=== PATIENT | female | born 1955 | race Caucasian/White ===

== ENCOUNTER 2019-09-10 13:56 | Inpatient (IN) | payer BC, SELFPAY ==
[2019-09-10 14:00] VITALS: BP 127/78; PULSE 56; RESP 16; TEMP 36.7; O2SAT 95
[2019-09-10 14:46] VITALS: BMI 25.0
[2019-09-10 17:57] VITALS: BMI 25.0
[2019-09-10 21:48] VITALS: RESP 18; O2SAT 96
[2019-09-10 22:00] VITALS: BP 137/75; PULSE 67; RESP 18; TEMP 36.9; O2SAT 96
[2019-09-10] MEDS: Carvedilol 12.5 MG Tablet PO (22:34)
[2019-09-10] MEDS: Atorvastatin Calcium 80 MG Tablet PO (22:35)
[2019-09-10] MEDS: Senna/Docusate Sodium 1 Tablet 2 TABLET PO (22:35)
[2019-09-11 01:33] VITALS: BMI 25.0
[2019-09-11] MEDS: Nystatin Powder 15gm Bottle 1 APPLIC TOPICAL ×2 (05:29→22:11)
[2019-09-11 05:51] LABS: Absolute Lymphocyte Count 1.22 X10^3/uL (0.83-4.51); Absolute Neutrophil Count 6.3 X10^3/uL (2.0-7.7); Basophil# 0.07 X10^3/uL; Basophil% 0.8 % (0-1); Eosinophil# 0.18 X10^3/uL; Eosinophils% 2.1 % (0-5); Hematocrit 47.3 % (37-47); Hemoglobin 15.3 g/dL (12.0-15.0); Lymphocyte # 1.22 X10^3/ul (4.0); Lymphocyte % 14.3 % (19-41); Mean Corp Hgb Conc 32.3 g/dL (32-36); Mean Corpuscular Hgb 29.5 pg (27.0-32.0); Mean Corpuscular Volume 91.3 fL (81-99); Mean Platelet Vol. 10.2 fl (6.2-12.0); Monocyte# 0.79 X10^3/uL; Monocyte% 9.3 % (0-10); NRBC Flagged by Analyzer 0 % (0-5); Neutrophil # 6.25 X10^3/uL (2.7-7.7); Neutrophil % 73.3 % (47-70); Platelet Count 218 K/mm3 (150-450); RBC Distribution Width SD 43.7 fl (35.1-43.9); Red Blood Count 5.18 M/mm3 (4.2-5.4); White Blood Count 8.5 K/mm3 (4.4-11.0)
[2019-09-11 06:18] LABS: ALB/GLOB Ratio 0.9 RATIO (0.9-2.4); AST(SGOT) 32 U/L (15-37); Alanine Aminotransfer ALT/SGPT 72 U/L (13-56); Albumin, Serum 3.4 g/dL (3.2-5.0); Alkaline Phosphatase 79 U/L (45-117); Anion Gap 5 (5-15); BUN 24 mg/dL (7-18); BUN/Creat Ratio 28.1 RATIO (10-20); Calcium,Total 9.2 mg/dL (8.5-10.1); Chloride 103 mmol/L (98-107); Creatinine, Serum 0.86 mg/dL (0.55-1.02); EST Glomerular Filtration Rate 71 mL/min (>60); Est Glom Filt Rate - Afr Amer 86 mL/min (>60); Estimated Creatinine Clearance 57.07 ml/min; Globulin 3.9 g/dL (2.2-4.2); Glucose 95 mg/dL (74-106); Magnesium 2.2 mg/dL (1.6-2.6); Potassium 3.8 mmol/L (3.5-5.1); Protein, Total 7.3 g/dL (6.4-8.2); Sodium Level 136 mmol/L (136-145)
[2019-09-11 07:15] VITALS: BP 130/77; PULSE 56; RESP 16; TEMP 36.8; O2SAT 95
[2019-09-11] MEDS: Carvedilol 12.5 MG Tablet PO ×2 (07:41→22:10)
[2019-09-11] MEDS: Aspirin E.C. 81 MG Tablet PO (07:41)
[2019-09-11] MEDS: hydroCHLOROthiazide 12.5mg 12.5 MG PO (07:41)
[2019-09-11] MEDS: Losartan Potassium 100 MG Tablet PO (07:42)
[2019-09-11] MEDS: Senna/Docusate Sodium 1 Tablet 2 TABLET PO ×2 (07:42→22:10)
[2019-09-11] MEDS: amLODIPine 10 MG Tablet PO (07:42)
--- NOTE | 2019-09-11 11:27 | HP.PCM_ITS ---
Problem List (1) Debility Status: Acute Comment: due to L MCA ischemic CVA with small 5 mm petechial hemorrhagic transformation (2) Ischemic cerebrovascular accident (CVA) Status: Acute Comment: 09/07/19 L MCA (3) NSTEMI (non-ST elevated myocardial infarction) Status: Acute Comment: 09/07/19 - troponin peaked at 0.3. she has segmental wall motion abnormalities on ECHo with a 45-50% EF. Cath showed no significant CAD. (4) Intracerebral hemorrhage Status: Acute Qualifiers: Intracerebral hemorrhage etiology: nontraumatic Cerebral hemorrhage location: cerebral hemisphere, subcortical portion Laterality: left Qualified Code(s): I61.0 - Nontraumatic intracerebral hemorrhage in hemisphere, subcortical Comment: small petechial hemorrhage in the L frontal area (5) Hypertension Status: Chronic (6) Depression Status: Acute Comment: son 3 weeks prior to her stroke (7) Aphasia Status: Acute (8) Venous insufficiency Status: Chronic (9) Venous stasis ulcer Status: Chronic Qualifiers: Venous stasis ulcer site: calf Laterality: right Comment: RLE - present since a dog bite a few months prior to admission to the rehab unit (10) Biatrial enlargement Status: Chronic Comment: Moderate to severe left atrial enlargement and moderate right atrial enlargement. (11) Mild aortic stenosis Status: Chronic Comment: The aortic valve is calcified. The valve gradient on left heart cath was unremarkable. (12) Dysphagia Status: Acute (13) LVH (left ventricular hypertrophy) Status: Acute Comment: has some impaired relaxation of the left ventricle (14) Mitral regurgitation Status: Chronic Qualifiers: Cardiac valve disease etiology: nonrheumatic Qualified Code(s): I34.0 - Nonrheumatic mitral (valve) insufficiency History of Present Illness Date of Admission: 09/10/19 Chief Complaint: Debility secondary to recent ischemic CVA with subsequent hemorrhagic transformation Yanet presented to a local hospital on 09/07/19 after her neighbors found her wandering in her yard confused and dysarthric. She was diagnosed with an acute CVA and had an elevated troponin. She was transferred to [facility] for further management. An echocardiogram done at the outside hospital showed a 45 to 50% ejection fraction with regional wall motion abnormalities. Cardiology and neurology were consulted upon arrival at [facility]. CT scan of the brain on arrival at [facility] on 09/07/2019 showed a left hyperdense MCA sign. There were minimal deep and periventricular white matter hypodensities consistent with small vessel ischemic disease. CTA showed the common carotids, internal carotids and left MCA to have no significant stenosis. The vertebrobasilar system was patent as well. The pulmonary artery appeared dilated. Lab at admission to [facility] was significant for leukocytosis and urinary tract infection. Troponin was mildly elevated and peaked at 0.3.. The EKG showed normal sinus rhythm with left ventricular hypertrophy and repolarization abnormalities in the lateral leads. There was no ST elevation. She had a left heart catheterization while at [facility] and this revealed no significant coronary artery disease. Her son 3 weeks prior to the stroke. He was HIV + and he of an infection. He had gastroparesis and he was chronically in a lot of pain. He was living with her and he was her only child. she is . Staff feels that the pt is depressed but, she denies. She had been diagnosed with HTN in the past by her PCP but, she decided not to take medication. I reviewed all the documentation from [facility] including labs, radiology, heart cath, ECHO and all the therapy notes Past Medical History Past Medical History (Chronic Problems): Chronic Problems (Last Reviewed 09/14/19 @ 12:[address] Mariana Mcnulty DO) Hypertension (Chronic) Venous insufficiency (Chronic) Venous stasis ulcer (Chronic) RLE - present since a dog bite a few months prior to admission to the rehab unit Biatrial enlargement (Chronic) Moderate to severe left atrial enlargement and moderate right atrial enlargement. Mild aortic stenosis (Chronic) The aortic valve is calcified. The valve gradient on left heart cath was unremarkable. Mitral regurgitation (Chronic) Medical History: Medical History (Last Reviewed 09/14/19 @ 12:[address] 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 She has a good friend Vicente who is helping her and is a good advocate for her Smoking Status: Never smoker Tobacco Use: Non-smoker Alcohol: None Drugs: None - *Family History Maternal History Items: Cancer - mother had breast CA, Stroke - strokes in grandparents Offspring History Items: - - son Chester had HIV and of an infection in August of 2019 Review of Systems Constitutional: Reports: Anorexia - at times....jamar with fluids. Denies: Chills, Fever, Weight Change Eyes: Denies: Blurred vision, Double vision, Vision Change HEENT: Reports: Difficulty Swallowing. Denies: Difficulty Hearing, Head Aches, Post Nasal Drip, Sinus Congestion, Sinus Drainage, Visual Changes Cardiovascular: Denies: Chest Pain, Edema, Palpitations, Syncope Respiratory: Denies: Cough, Pleuritic Pain, Shortness of breath at rest, Shortness of breath upon exertion, Sputum production, Wheezing Gastrointestinal: Denies: Abdominal Pain, Constipation, Diarrhea, Nausea, Vomiting Genitourinary: Denies: Dysuria, Incontinence Gynecological: Denies: Breast symptoms - she has not had a MMG since 2017, Vaginal bleeding, Vaginal discharge, Vaginal itching Musculoskeletal: Denies: Joint Pain, Joint Tenderness, Neck Pain Skin: Reports: Rash - she has a red maculopapular pruritic rash on the stomach, Back and UE's.. Denies: Jaundice, Wounds Neurological: Reports: Change in Speech - she is having trouble word finding and also is having memory problems and trouble sequencing, Confusion, Difficulty swallowing. Denies: Focal weakness, Headaches, Numbness, Tingling, Tremor, Seizures Psychiatric: Denies: Anxiety, Depression, Homicidal Ideations, Suicidal Ideations Endocrine: Denies: Change in Body Habitus Hematologic/ Lymphatic: Denies: Easy Bruising, Easy Bleeding, Hx of blood clot VTE Information - Inpt Only VTE Present on Admission: No VTE Mechan Device Prophylaxis: Knee High REI Hose VTE Pharm Prophylaxis ordered?: Yes Patient Problems: Active and Suspected Problems (Last Reviewed 09/14/19 @ 12:[address] Mariana Mcnulty, DO) Debility (Acute) due to L MCA ischemic CVA with small 5 mm petechial hemorrhagic transformation Ischemic cerebrovascular accident (CVA) (Acute) 09/07/19 L MCA NSTEMI (non-ST elevated myocardial infarction) (Acute) 09/07/19 - troponin peaked at 0.3. she has segmental wall motion abnormalities on ECHo with a 45-50% EF. Cath showed no significant CAD. Intracerebral hemorrhage (Acute) small petechial hemorrhage in the L frontal area Depression (Acute) son 3 weeks prior to her stroke Aphasia (Acute) primarily expressive Dysphagia (Acute) LVH (left ventricular hypertrophy) (Acute) has some impaired relaxation of the left ventricle - Physical Exam Vitals/I&O's: Vital Signs Temp Pulse Resp BP Pulse Ox 98.2 F 56 L 16 130/77 H 95 09/11/19 07:15 09/11/19 07:15 09/11/19 07:15 09/11/19 07:15 09/11/19 07:15 Oxygen Delivery Method Room Air Weight: 152 lb 5.431 oz Body Mass Index (BMI) 25.0 Intake and Output for Last 24 Hours 09/09/19 09/10/19 09/11/19 23:59 23:59 23:59 Intake Total 240 / 240 180 / 180 Balance 240 / 240 180 / 180 General: Alert, Oriented x3, Cooperative, - - She is tearful when talking about her son and when talking about depression and fears about the stroke and possiblity for another. She tells me that she now knows she needs to control BP and lipids if she is going to avoid additional strokes going forward. She does not want to be dependent and likes living alone. HEENT: Atraumatic, PERRLA, EOMI, Normocephalic, - - mild right facial droop Oral: No Gingival or Mucosal Lesions/ Ulcerations, Dry Mucosa Neck: Supple, No JVD, Trachea Midline, Thyroid Normal Size and Texture, Carotid Bruits, Bilateral - VS radiation of MM at he second RICS Lungs: Clear to auscultation, No rhonchi, No wheeze, No rales, Diminished - in the bases Cardiovascular: Regular rate, Regular Rhythm, Normal S1, Normal S2, Murmur - She has a systolic ejection MM a the second RICS with radiation to the LVOT, the LLSB and the apex.....mild at the apex. There is also a soft systolic MM in the left axilla due to MR Laboratory Results 09/11/19 05:35: WBC 8.5, RBC 5.18, Hgb 15.3 H, Hct 47.3 H, MCV 91.3, MCH 29.5, MCHC 32.3, RDW Std Deviation 43.7, RDW Coeff of [place] 13.0, Plt Count 218, MPV 10.2, Immature Gran % (Auto) 0.200, Neut % (Auto) 73.3 H, Lymph % (Auto) 14.3 L, [place] % (Auto) 9.3, Eos % (Auto) 2.1, Baso % (Auto) 0.8, Absolute Neuts (auto) 6.3, Absolute Lymphs (auto) 1.22, Nucleated RBC % 0 09/11/19 05:35: Sodium 136, Potassium 3.8, Chloride 103, Carbon Dioxide 28.0, Anion Gap 5, BUN 24 H, Creatinine 0.86, Estim Creat Clear Calc 57.07, Est GFR (MDRD) Af Amer 86, Est GFR (MDRD) Non-Af 71, BUN/Creatinine Ratio 28.1 H, Glucose 95, Calcium 9.2, Phosphorus 4.0, Magnesium 2.2, Total Bilirubin 0.80, AST 32, ALT 72 H, Alkaline Phosphatase 79, Total Protein 7.3, Albumin 3.4, Globulin 3.9, Albumin/Globulin Ratio 0.9 Current Medications Acetaminophen (Tylenol) 650 mg PO Q6H PRN PRN PRN Reason: Pain Score 1-10/10 Amlodipine Besylate (Norvasc) 10 mg PO DAILY [facility] Last Admin: 09/11/19 07:42 Dose: 10 mg Documented by: [facility] Admin: 09/11/19 07:41 Dose: 81 mg Documented by: Atorvastatin Calcium (Lipitor) 80 mg PO QHS [facility] Last Admin: 09/10/19 22:35 Dose: 80 mg Documented by: Bisacodyl (Dulcolax) 10 mg RECTAL .PRN X 1 PRN PRN Reason: Constipation Carvedilol (Coreg) 12.5 mg PO BID [facility] Last Admin: 09/11/19 07:41 Dose: 12.5 mg Documented by: Hydrochlorothiazide () 12.5 mg PO DAILY [facility] Last Admin: 09/11/19 07:41 Dose: 12.5 mg Documented by: Losartan Potassium (Cozaar) 100 mg PO DAILY [facility] Last Admin: 09/11/19 07:42 Dose: 100 mg Documented by: Magnesium Hydroxide (Milk Of Magnesia) 30 ml PO .PRN X 1 PRN PRN Reason: Constipation Multi-Ingredient Cream (Eucerin) 1 applic TOPICAL BID PRN PRN; Protocol PRN Reason: DRY SKIN Nutritional Formula (Lactose Free) (Ensure Enlive) 120 ml PO 4X/DAY [facility] Last Admin: 09/11/19 08:41 Dose: 120 ml Documented by: Nystatin (Mycostatin Powder) 1 applic TOPICAL BID@0600,2200 [facility]; Protocol Last Admin: 09/11/19 05:29 Dose: 1 applicatio Documented by: Senna/Docusate Sodium (Senokot-S, Paty-Colace) 2 tablet PO BID [facility] Last Admin: 09/11/19 07:42 Dose: 2 tablet Documented by: Assessment/Plan All Active Problems (Last Reviewed 09/14/19 @ 12:[address] Mariana Mcnulty, ) Debility (Acute) Ischemic cerebrovascular accident (CVA) (Acute) NSTEMI (non-ST elevated myocardial infarction) (Acute) Intracerebral hemorrhage (Acute) Depression (Acute) Aphasia (Acute) Dysphagia (Acute) LVH (left ventricular hypertrophy) (Acute) Impressions 1. Debility due to recent L posterior frontal lobe ischemic CVA with a 5 mm area of petechial hemorrhage due to occlusion of the M2 branch of the L MCA more likely than not due to untreated HTN 2. Depression due to the passing of her son recently and to CVA and NSTEMI 3. dehydration due to poor intake and HCTZ 4. allergic dermatitis - suspect due to antibiotic she was on at [facility] - either Clindamycin or Rocephin.......she was on Rocephin for UTI, why Clinda? did she have aspiration PNA? 5. FH of breast CA in her mother. Yanet has not had a MMG in 3 years. She has already had a VICKIE/BSO in the past for DUB 6. HLD 7. Biatrial enlargement with moderate to severe left atrial enlargement and moderate right atrial enlargement. This raises the possibility of paroxysmal atrial fibrillation as the etiology of recent stroke? 8. Concentric left ventricular hypertrophy, impaired relaxation of the heart in diastole. No PFO. PLAN PT for gait stability OT for ADL's ST for evaluation for swallowing and expressive aphasia. 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 Patient is asymptomatic and has no history of peptic ulcer disease. DVT prophylaxis with Lovenox 40 mg subcu daily. The bleed was only 5 mm and this is not a contraindication for DVT prophylaxis. Follow up with PCP, cardiology and neurology following DC from [facility] AM lab including CMP, CBC, Mag and Phos Will prescribe a 30 day event monitor at DC Encouraged to increase fluid intake......if she is unable to do this will need to DC the HCTZ and start an IV Treat for depression consult to supply her with resources to get therapy post DC. Inpatient E&M: 81228 Init Hosp L3
--- NOTE | 2019-09-11 12:22 | CASEMGMT ---
Social Work Note SW met with pt to complete psychosocial assessment. PT informed SW that her son on July 24, 2019. Pt tearful when discussing of son. Pt son lived with pt and was pt only child. Emotional support provided to pt and discussed with pt appropriate grieving reactions. SW offered Psychology Professor services and pt states not at this time but possibly down the road. Referral made to Psychology Professor Ray for later next week. SW will continue to visit pt to offer support. CARLO Weller
[2019-09-11 12:51] VITALS: O2SAT 95
[2019-09-11 13:54] VITALS: BMI 25.0
[2019-09-11 14:22] LABS: Probe Check PASS; Specimen Processing Control PASS
[2019-09-11] MEDS: DiphenhydrAMINE 25 MG Capsule PO (18:47)
[2019-09-11 19:45] VITALS: BP 137/81; PULSE 64; RESP 16; TEMP 36.6; O2SAT 95
--- NOTE | 2019-09-11 20:29 | REHABEVAL_ITS ---
Admission Information Primary Diagnosis:: debility due to ischemic L MCA CVA with small left frontal petechial hemorrhage with aphasia and dysphagia Status Changes from Prescreening?: No changes Identified Actual Problem List:: Cognitve Impr/Memory Loss, Depression Potential Problem List:: DVT, Bleeding, Infection, UTI, Aspiration, Falls, Skin Integrity, Depression Risk of Complications DVT: LMWH, REI Hose Bleeding: Monitor Lab Values, Nursing to Teach Precautions for anti-coagulation therapy., Wound, if applicable, to be assessed every shift., Stroke patients assessed for lethargy or change in status. Infection: Clinical Staff to Monitor for S/S of infection:, S/S of infection include fever, redness, warmth, etc. Urinary Tract Infection: Monitor for frequency, burning, discomfort, or incontinence., Nursing will obtain urine sample for urinalysis and C&S when ordered. Aspiration: Clinical staff will monitor for coughing, drooling, congestion., Speech will evaluate swallowing and dsyphasia., Nursing will monitor patient swallowing during meals. Falls: Patient will be evaluated for Fall Precautions, Patient will be placed on Fall Precautions as indicated per protocol. Skin Breakdown: Nursing will assess skin daily using assessment tool., Nursing will place on Skin Breakdown Precautions as indicated. Pain: Clinical staff will assess patient's pain level per protocol., Medications will be given, if needed, and the pain level reassessed., Other methods: Massage, distraction, decrease stimulus, etc. used PRN. Plan of Care Patient requires physician specializing in physical medicine and rehab oversight to provide close medical supervision of rehab issues including: Pain Management, Sleep Problems, Bowel and Bladder, Medical and co-morbidity Management, DVT prophylaxis, Rehabilitation Leadership, Coordination of treatment team Patient needs Physical Therapy: For a minimum of 1 hour, At least 5 out of 7 days Patient needs Physical Therapy to improve:: Mobility, Mobility, Mobility, Strengthening, Transfers, Stretching, ROM, Endurance, Stairs, Gait, Balance Patient needs Occupational Therapy: For a minimum of 1 hour, At least 5 out of 7 days Patient needs Occupational Therapy to improve ADL's incl.: Eating, Grooming, Bathing, Dressing, Toileting, Toilet transfers, Community Reintegration, Higher functioning activities, Household tasks, Adaptive Equipment, Splinting, Other activities as determined Patient requires speech therapy: For a minimum of 1 hour, At least 5 out of 7 days Patient requires speech therapy for: Swallowing, Cognition, Language Skills, Compensatory Strategies Patient requires 24/ Rehabilitation Nursing for: Pain Issues, Identifying and preventing risk factors, Monitoring and reporting current medical conditions, Assisting with ambulation, transfer, and all ADL's, Teaching patients about disease process and medications, Family teaching, Providing safe environment, Bowel and Bladder Issues, Skin integrity, Medication Management Patient needs High School Admissions Representative/ Case Management for: Discharge Planning, Arranging Home Equipment or Services, Family Interventions Patient needs Dietary and Nutrition Services for: Adequate Nutrition, Nut ritional Supplements, Nutritional Education Goals Patient will remain: free from falls, or injury at time of discharge. Patient will perform bed mobility at: MOD I level of assist. Patient will complete transfers from bed to chair at: MOD I level of assist. Patient will ambulate: 100 feet, with MOD I assist, with LRD Patient will complete upper body dressing at: MOD I level of assist. Patient will complete lower body dressing at: MOD I level of assist. Patient will complete toileting at: MOD I level of assist. Patient will perform bathing at: MOD I level of assist. Patient will complete grooming at: MOD I level of assist. Patient will complete home management skills at: MOD I level of assist. Patient will achieve: 12 stairs, at MOD I assist Patient will have pain level of: of 3 or less Patient's skin will: remain intact, free from infection. Patient will receive: adequate nutrition. Discharge Planning Pt Prognosis for Sig. Practical Improv. w/in Reasonable Time: Good Estimated Length of stay (days): 14 Anticipated D/C Destination: Home with Outpt Therapy Was Preadmission Assessment Accurate?: Yes
[2019-09-11] MEDS: Atorvastatin Calcium 80 MG Tablet PO (22:10)
[2019-09-11 23:16] VITALS: BMI 25.0
[2019-09-12] MEDS: DiphenhydrAMINE 25 MG Capsule PO ×3 (03:46→21:09)
[2019-09-12] MEDS: Nystatin Powder 15gm Bottle 1 APPLIC TOPICAL ×2 (06:21→21:13)
[2019-09-12 07:14] VITALS: BP 134/79; PULSE 57; RESP 16; TEMP 36.6; O2SAT 96
[2019-09-12 07:20] VITALS: O2SAT 95
[2019-09-12] MEDS: Carvedilol 12.5 MG Tablet PO ×2 (07:24→21:10)
[2019-09-12] MEDS: amLODIPine 10 MG Tablet PO (07:24)
[2019-09-12] MEDS: hydroCHLOROthiazide 12.5mg 12.5 MG PO (07:24)
[2019-09-12] MEDS: Losartan Potassium 100 MG Tablet PO (07:24)
[2019-09-12] MEDS: Aspirin E.C. 81 MG Tablet PO (07:24)
[2019-09-12 11:05] VITALS: BMI 25.0
[2019-09-12] MEDS: MethylPREDNISolone DosePak 4 MG BOX PO ×3 (12:12→21:10)
[2019-09-12 19:49] VITALS: BP 133/78; PULSE 64; RESP 18; TEMP 36.2; O2SAT 94
[2019-09-12] MEDS: Atorvastatin Calcium 80 MG Tablet PO (21:10)
[2019-09-13] MEDS: Nystatin Powder 15gm Bottle 1 APPLIC TOPICAL ×2 (05:06→21:15)
[2019-09-13] MEDS: Aspirin E.C. 81 MG Tablet PO (08:42)
[2019-09-13] MEDS: Losartan Potassium 100 MG Tablet PO (08:42)
[2019-09-13] MEDS: Carvedilol 12.5 MG Tablet PO ×2 (08:42→21:09)
[2019-09-13] MEDS: amLODIPine 10 MG Tablet PO (08:43)
[2019-09-13] MEDS: hydroCHLOROthiazide 12.5mg 12.5 MG PO (08:43)
[2019-09-13] MEDS: MethylPREDNISolone DosePak 4 MG BOX PO ×4 (08:44→21:09)
[2019-09-13 09:10] VITALS: BP 131/80; PULSE 62; RESP 18; TEMP 36.9; O2SAT 97
[2019-09-13 13:42] VITALS: BMI 25.0
[2019-09-13] MEDS: Atorvastatin Calcium 80 MG Tablet PO (21:09)
[2019-09-13 21:40] VITALS: BP 143/88; PULSE 64; RESP 18; TEMP 36.5; O2SAT 98
[2019-09-14 02:06] VITALS: BMI 25.0
[2019-09-14] MEDS: Nystatin Powder 15gm Bottle 1 APPLIC TOPICAL ×2 (05:46→21:56)
[2019-09-14 06:21] LABS: Anion Gap 6 (5-15); BUN 44 mg/dL (7-18); BUN/Creat Ratio 39.6 RATIO (10-20); Calcium,Total 9.9 mg/dL (8.5-10.1); Chloride 102 mmol/L (98-107); Creatinine, Serum 1.11 mg/dL (0.55-1.02); EST Glomerular Filtration Rate 52 mL/min (>60); Est Glom Filt Rate - Afr Amer 64 mL/min (>60); Estimated Creatinine Clearance 46.07 ml/min; Glucose 122 mg/dL (74-106); Potassium 4.3 mmol/L (3.5-5.1); Sodium Level 136 mmol/L (136-145)
[2019-09-14 07:31] VITALS: BP 132/80; PULSE 67; RESP 18; TEMP 36.4; O2SAT 98
[2019-09-14] MEDS: MethylPREDNISolone DosePak 4 MG BOX PO ×4 (08:10→21:56)
[2019-09-14] MEDS: Losartan Potassium 100 MG Tablet PO (08:11)
[2019-09-14] MEDS: Aspirin E.C. 81 MG Tablet PO (08:11)
[2019-09-14] MEDS: amLODIPine 10 MG Tablet PO (08:11)
[2019-09-14] MEDS: hydroCHLOROthiazide 12.5mg 12.5 MG PO (08:11)
[2019-09-14] MEDS: Carvedilol 12.5 MG Tablet PO ×2 (08:11→21:55)
[2019-09-14 11:08] VITALS: BMI 25.0
--- NOTE | 2019-09-14 11:53 | CASEMGMT ---
Team meeting held in pt room with pt and friend Vicente present. Pt is participating in three hours of therapy daily receiving PT/OT/ST. Pt is able to ambulate and complete 14 stairs at SBA. Pt is also SBA for ADLs and will start working with OT on higher level functioning items. Speech is seeing pt for swallowing, speech and cognition. Pt having difficulty with word finding and complex cognitive multistep directions. SW discussed with pt and Vicente that insurance has authorized initial stay with update tomorrow but continued stay is not guaranteed. Pt plans to return home upon discharge however pt does live alone and pt and Vicente expressing concerns of being discharged before pt is safe to live alone. Pt is unable to use phone due to impairment from stroke and pt and Vicente fearful of an emergency situation in which pt cannot express self clearly under stressful situations. Vicente is working on making pt home accessible but it is not ready at this time. Pt would benefit from continued therapy to improve expressive aphasia and higher level cognitive functioning prior to discharging home. Will continue with treatment plan at this time and reteam next week. CARLO Weller
--- NOTE | 2019-09-14 12:27 | CASEMGMT ---
Social Work SW spoke with Pal in Behavioral Health regarding assessment for pt to followup with counseling at time off discharge. At this time questionable if pt would tolerate [facility]'s IOP program due to cognitive deficits as pt may be overwhelmed with groups and have difficulty focusing. SW will followup with Behavioral health closer to time of discharge after pt has had continued speech therapy and will assess for appropriateness. CARLO Weller
--- NOTE | 2019-09-14 13:55 | PCM.PN.BLA ---
Progress Note Patient was seen on team rounds today. Her friend Vicente was present for rounds. Vicente is trying to get the residence cleaned up and safe for the patient to return to. Apparently Rose has been overwhelmed and not keeping up with the housekeeping. Afebrile VSS Maintaining appropriate oxygen saturation on RA Oral intake is starting to improve..... She took 1920 cc on 09/13/2019 and so far today has had 720. Discussed with nursing - no problems that need addressed Reviewed the PT/OT/ST notes. Deficit is primarily expressive aphasia and cognitive dysfunction. She has a very mild left facial droop but no facial numbness or visual field cuts. Medication list reviewed. She has no complaints at this time other than memory difficulties. She has been trying to comply with increasing fluids. She denies chest pain, shortness of breath, palpitations, lightheadedness. Alert, cooperative Lungs-clear to auscultation with excellent air exchange Heart-regular rate and rhythm. Systolic murmur heard at the second right intercostal space with radiation to the left ventricular outflow tract, the left lower sternal border and the apex. She also has a systolic murmur in the left axilla due to mitral regurgitation. abd - soft and NT no edema no rashes or skin breakdown no calf tenderness Impressions 1. Post stroke debility 2. Depression 3. Dehydration 4. Allergic dermatitis more likely than not secondary to either clindamycin or Rocephin-patient finished these antibiotics prior to coming to [facility] 5. Biatrial enlargement with moderate to severe left atrial enlargement and moderate right atrial enlargement. I am concerned she may be having PAF. 6. LVH due to untreated HTN 7. HTN Continue to encourage increased fluid intake continue therapy 30 day event monitor at [place] Inpatient E&M: [id number] Subs Hosp L2
--- NOTE | 2019-09-14 16:34 | CASEMGMT ---
Social Work Insurance update is not due tomorrow. Pt approved for 14 days with NRD 09/23. Pt and Friend Vicente notified. CARLO Weller
[2019-09-14] MEDS: Senna/Docusate Sodium 1 Tablet 2 TABLET PO (21:55)
[2019-09-14] MEDS: Atorvastatin Calcium 80 MG Tablet PO (21:55)
[2019-09-14] MEDS: Mirtazapine 15 MG Tablet 7.5 MG PO (21:56)
[2019-09-14 22:00] VITALS: BP 152/85; PULSE 56; RESP 16; TEMP 37.1; O2SAT 96; BMI 25.0
[2019-09-15] MEDS: Enoxaparin 40 MG/0.4 ML Syringe SC (05:37)
[2019-09-15] MEDS: Nystatin Powder 15gm Bottle 1 APPLIC TOPICAL ×2 (05:38→21:18)
[2019-09-15] MEDS: MethylPREDNISolone DosePak 4 MG BOX PO ×3 (07:48→21:18)
[2019-09-15] MEDS: amLODIPine 10 MG Tablet PO (07:49)
[2019-09-15] MEDS: Aspirin E.C. 81 MG Tablet PO (07:49)
[2019-09-15] MEDS: Carvedilol 12.5 MG Tablet PO ×2 (07:49→21:18)
[2019-09-15] MEDS: Losartan Potassium 100 MG Tablet PO (07:49)
[2019-09-15] MEDS: Senna/Docusate Sodium 1 Tablet 2 TABLET PO (07:49)
[2019-09-15] MEDS: hydroCHLOROthiazide 12.5mg 12.5 MG PO (07:49)
[2019-09-15 07:52] VITALS: BP 152/88; PULSE 60; RESP 16; TEMP 36.6; O2SAT 96
[2019-09-15 11:05] VITALS: BMI 25.0
--- NOTE | 2019-09-15 14:38 | PCM.PN.BLA ---
Progress Note Doing well today. She has no complaints Fluid intake has increased since she was threatened with an IV Blood pressure is well controlled Maintaining appropriate oxygen saturation on room air Reviewed the PT/OT/ST notes Nursing reports no problems Alert, still tearful at times, sitting in the recliner doing her homework from speech therapy Lungs-clear to auscultation Heart-regular rate and rhythm Abdomen-soft, nontender No peripheral edema No calf tenderness Mild left facial droop Impressions 1. Post stroke debility 2. Depression 3. Dehydration 4. Allergic dermatitis more likely than not secondary to either clindamycin or Rocephin-patient finished these antibiotics prior to coming to [facility]' 5. Biatrial enlargement with moderate to severe left atrial enlargement and moderate right atrial enlargement. I am concerned she may be having PAF. 6. LVH due to untreated HTN 7. HTN 8. increased creat yesterday due to dehydration Continue therapy Continue to encourage increased fluid intake and offer water hourly during the day Recheck lab in a few days to follow creatinine Inpatient E&M: [id number] Subs Hosp L2
--- NOTE | 2019-09-15 15:36 | NURSING ---
wound photo: right delaney
[2019-09-15 21:13] VITALS: BP 127/78; PULSE 63; RESP 16; TEMP 36.2; O2SAT 98
[2019-09-15] MEDS: Atorvastatin Calcium 80 MG Tablet PO (21:18)
[2019-09-15] MEDS: Mirtazapine 15 MG Tablet 7.5 MG PO (21:19)
[2019-09-16 00:57] VITALS: BMI 25.0
[2019-09-16] MEDS: Nystatin Powder 15gm Bottle 1 APPLIC TOPICAL ×2 (05:53→20:40)
[2019-09-16] MEDS: Enoxaparin 40 MG/0.4 ML Syringe SC (05:54)
[2019-09-16 07:30] VITALS: BP 151/71; PULSE 55; RESP 16; TEMP 36.5; O2SAT 98
[2019-09-16] MEDS: amLODIPine 10 MG Tablet PO (07:56)
[2019-09-16] MEDS: hydroCHLOROthiazide 12.5mg 12.5 MG PO (07:56)
[2019-09-16] MEDS: Aspirin E.C. 81 MG Tablet PO (07:56)
[2019-09-16] MEDS: Losartan Potassium 100 MG Tablet PO (07:56)
[2019-09-16] MEDS: Carvedilol 12.5 MG Tablet PO ×2 (07:57→20:41)
[2019-09-16] MEDS: MethylPREDNISolone DosePak 4 MG BOX PO ×2 (07:57→20:40)
[2019-09-16 15:57] VITALS: BMI 25.0
[2019-09-16 19:45] VITALS: BP 134/75; PULSE 55; RESP 16; TEMP 36.6; O2SAT 97
[2019-09-16] MEDS: Mirtazapine 15 MG Tablet 7.5 MG PO (20:39)
[2019-09-16] MEDS: Atorvastatin Calcium 80 MG Tablet PO (20:41)
[2019-09-16 20:42] VITALS: PULSE 60
[2019-09-17] MEDS: Enoxaparin 40 MG/0.4 ML Syringe SC (05:35)
[2019-09-17] MEDS: Nystatin Powder 15gm Bottle 1 APPLIC TOPICAL ×2 (05:36→21:57)
[2019-09-17] MEDS: Aspirin E.C. 81 MG Tablet PO (07:47)
[2019-09-17] MEDS: Losartan Potassium 100 MG Tablet PO (07:47)
[2019-09-17] MEDS: Carvedilol 12.5 MG Tablet PO ×2 (07:47→21:57)
[2019-09-17] MEDS: hydroCHLOROthiazide 12.5mg 12.5 MG PO (07:48)
[2019-09-17] MEDS: amLODIPine 10 MG Tablet PO (07:48)
[2019-09-17 09:01] VITALS: BP 149/78; PULSE 60; RESP 16; TEMP 36.4; O2SAT 97
[2019-09-17 10:24] VITALS: BMI 25.0
[2019-09-17 19:26] VITALS: BP 140/80; PULSE 62; RESP 16; TEMP 36.8; O2SAT 96
[2019-09-17] MEDS: Mirtazapine 15 MG Tablet 7.5 MG PO (21:56)
[2019-09-17] MEDS: Atorvastatin Calcium 80 MG Tablet PO (21:57)
[2019-09-18] MEDS: Nystatin Powder 15gm Bottle 1 APPLIC TOPICAL ×2 (05:07→21:56)
[2019-09-18] MEDS: Enoxaparin 40 MG/0.4 ML Syringe SC (05:07)
[2019-09-18] MEDS: Aspirin E.C. 81 MG Tablet PO (07:47)
[2019-09-18] MEDS: Losartan Potassium 100 MG Tablet PO (07:47)
[2019-09-18] MEDS: Carvedilol 12.5 MG Tablet PO ×2 (07:47→21:53)
[2019-09-18] MEDS: amLODIPine 10 MG Tablet PO (07:48)
[2019-09-18] MEDS: hydroCHLOROthiazide 12.5mg 12.5 MG PO (07:48)
[2019-09-18 08:34] VITALS: BP 148/88; PULSE 63; RESP 16; TEMP 36.6; O2SAT 96
[2019-09-18 08:46] VITALS: BMI 25.0
--- NOTE | 2019-09-18 15:11 | CHAPLAIN ---
Type of Pastoral Visit _x__ Initial Visit ___ Follow-up Visit ___ On-call Visit ___ General Patient Visit ___ Spiritual Assessment ___ Family Conference ___ Bereavement ___ Rapid Response ___ Code Blue ___ Other (describe below) Pastoral Care Referral From _x__ Patient ___ Family ___ Nurse ___ Physician _x__ Family Advocate ___ Band Teacher ___ Other (describe below) Sacrament/Intervention _x__ Active listening ___ Anointing ___ Quaker _x__ Bereavement ___ Communion _x__ Kriss exploration ___ ___ Life review _x__ Prayer ___ Reconciliation ___ Sacrament of Sick _x__ Supportive presence ___ Wedding ___ Other (describe below) Pastoral Comments patient gives some recent history and life review but main focus was on the last month of her son; 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
[2019-09-18 19:23] VITALS: BP 144/78; PULSE 64; RESP 16; TEMP 37.1; O2SAT 95
[2019-09-18] MEDS: Atorvastatin Calcium 80 MG Tablet PO (21:54)
[2019-09-18] MEDS: Mirtazapine 15 MG Tablet 7.5 MG PO (21:54)
[2019-09-18 23:28] VITALS: BMI 25.0
[2019-09-19] MEDS: Enoxaparin 40 MG/0.4 ML Syringe SC (04:42)
[2019-09-19] MEDS: Nystatin Powder 15gm Bottle 1 APPLIC TOPICAL ×2 (04:43→20:37)
[2019-09-19 07:57] VITALS: BP 129/76; PULSE 63; RESP 18; TEMP 37.2; O2SAT 95
[2019-09-19] MEDS: Carvedilol 12.5 MG Tablet PO ×2 (08:11→20:39)
[2019-09-19] MEDS: Aspirin E.C. 81 MG Tablet PO (08:11)
[2019-09-19] MEDS: Losartan Potassium 100 MG Tablet PO (08:11)
[2019-09-19] MEDS: amLODIPine 10 MG Tablet PO (08:12)
[2019-09-19] MEDS: hydroCHLOROthiazide 12.5mg 12.5 MG PO (08:12)
[2019-09-19 09:33] VITALS: BMI 25.0
--- NOTE | 2019-09-19 12:21 | PCM.PN.BLA ---
Progress Note Late entry for 09/18/19 AF Vital signs stable-blood pressure is controlled, no tachycardia Oral intake is still poor to fair Maintaining appropriate oxygen saturation on room air Reviewed the PT/OT/ST notes Patient reports that she is sleeping well at night. Appetite has improved a little Denies chest pain, palpitations, shortness of breath, constipation, nausea, abdominal pain. No dysuria. She denies lightheadedness. Alert, sitting in the recliner at the bedside, coloring Mucous membranes are dry Lungs-clear to auscultation after a few deep breaths Heart-regular rate and rhythm with occasional ectopic Abdomen-soft, nontender, nondistended, no guarding with palpation, normal bowel sounds present No peripheral edema No calf tenderness No rashes and no skin breakdown Left facial droop is less prominent Impressions 1. Post stroke debility 2. Dehydration with poor oral intake 3. Mildly increased creatinine secondary to intravascular volume depletion 4. Depression recheck lab in a few days continue to offer water every hour during the day and communicate this with therapy too Plan on DC to home when ready. Her friend Vicente is getting the house ready to inhabit and arranging for grab bars and a handrail to be installed I think that she would benefit from psychotherapy at DC Will complete FMLA papers when we receive them Inpatient E&M: 23467 Subs Hosp L1
[2019-09-19 19:28] VITALS: BP 133/74; PULSE 65; RESP 16; TEMP 36.8; O2SAT 96
[2019-09-19] MEDS: Mirtazapine 15 MG Tablet 7.5 MG PO (20:39)
[2019-09-19] MEDS: Atorvastatin Calcium 80 MG Tablet PO (20:39)
[2019-09-20] MEDS: Enoxaparin 40 MG/0.4 ML Syringe SC (05:29)
[2019-09-20] MEDS: Nystatin Powder 15gm Bottle 1 APPLIC TOPICAL (05:30)
[2019-09-20 07:21] VITALS: BP 122/79; PULSE 72; RESP 18; TEMP 36.8; O2SAT 95
[2019-09-20] MEDS: hydroCHLOROthiazide 12.5mg 12.5 MG PO (08:36)
[2019-09-20] MEDS: amLODIPine 10 MG Tablet PO (08:36)
[2019-09-20] MEDS: Carvedilol 12.5 MG Tablet PO ×2 (08:36→21:36)
[2019-09-20] MEDS: Aspirin E.C. 81 MG Tablet PO (08:36)
[2019-09-20] MEDS: Losartan Potassium 100 MG Tablet PO (08:37)
[2019-09-20 09:23] VITALS: BMI 25.0
--- NOTE | 2019-09-20 17:01 | PCA ---
pt. ambulated in halls x2 laps with contact guard assist. Tolerated well.
[2019-09-20 19:20] VITALS: BP 127/73; PULSE 63; RESP 16; TEMP 37.1; O2SAT 97
[2019-09-20 21:30] VITALS: PULSE 63; RESP 16; O2SAT 94; BMI 25.0
[2019-09-20] MEDS: Atorvastatin Calcium 80 MG Tablet PO (21:35)
[2019-09-20] MEDS: Mirtazapine 15 MG Tablet 7.5 MG PO (21:36)
--- NOTE | 2019-09-21 04:37 | NURSING ---
Reviewed and agree with TOBACCO GROWER charting of assessment and functionals.
[2019-09-21] MEDS: Enoxaparin 40 MG/0.4 ML Syringe SC (06:06)
[2019-09-21] MEDS: amLODIPine 10 MG Tablet PO (07:47)
[2019-09-21] MEDS: Aspirin E.C. 81 MG Tablet PO (07:47)
[2019-09-21] MEDS: Carvedilol 12.5 MG Tablet PO ×2 (07:47→20:12)
[2019-09-21] MEDS: hydroCHLOROthiazide 12.5mg 12.5 MG PO (07:47)
[2019-09-21] MEDS: Losartan Potassium 100 MG Tablet PO (07:47)
[2019-09-21 08:15] VITALS: BP 127/88; PULSE 57; RESP 16; TEMP 36.5; O2SAT 94
--- NOTE | 2019-09-21 10:20 | CASEMGMT ---
Social Work IDT met with patient for Team meeting. Discussed patient's progress in therapy. Pt has completed 20 steps SBA, SBA ambulating on multi surfaces with no device, SBA for transfers. Pt is independent with higher level ADLs, SBA for personal care ADLs. ST working on motor planning, doing better with visualization, facial symmetry is better, does not do as well with audio comprehension, and practicing hand dexterity. Physician to increase antidepressant. Explained [place] insurance with [employer] 09/23 and continued stay is not guaranteed. ST and OT would like to continue working with pt. IDT recommending outpatient at [place] but transportation is an issue. SW to work on resources - pt lives in [place]. Will continue to follow. Paty Bacon, EMERGENCY ROOM CLERK BUSINESS SOLUTIONS CONSULTANT
--- NOTE | 2019-09-21 12:17 | PCM.PN.BLA ---
Progress Note Yanet was seen on team rounds today. There were no family members or friends present for rounds and no one phoned in Afebrile VSS Maintaining appropriate oxygen saturation on RA Oral intake is fair....still really has not increased her fluid intake sufficiently. Her weight has increased 1.2 pounds since admission. Discussed with nursing - no problems that need addressed. Reviewed the PT/OT/ST notes. ST suspects she is not so much aphasic but has apraxia and OT feels she may have an apraxia that limits her writing ability Medication list reviewed. She is sleeping well. Less tearful and eating better. she is very motivated to do the exercises given to her by . Lungs - CTA H - RRR, no AF since she has been in the Rehab unit when I have listened to her. abd - soft and NT no edema Impressions 1. Post stroke debility 2. Depression-tolerating mirtazapine 7.5 mg nightly with no adverse side effects. 3. Elevated creatinine secondary to prerenal azotemia 4. Lkzhsjrwqakq-xdpz-ncjctzxbxh BMP, mag and phos in the AM. Encouraged her to increase her fluid intake and will have nursing remind her Continue therapy Increase mirtazapine to 15 mg p.o. nightly Discontinue hydrochlorothiazide 12.5 mg daily as she has not been able to increase fluid intake despite multiple reminders. She is eating better. Continue to monitor BP as it may increase with the discontinuation of the HCTZ Inpatient E&M: 09629 Subs Hosp L2
[2019-09-21 14:03] VITALS: BMI 25.0
[2019-09-21 18:57] VITALS: BP 121/74; PULSE 65; RESP 16; TEMP 37.1; O2SAT 95
[2019-09-21 20:00] VITALS: PULSE 65; RESP 16; O2SAT 95; BMI 25.0
[2019-09-21] MEDS: Mirtazapine 15 MG Tablet PO (20:12)
[2019-09-21] MEDS: Atorvastatin Calcium 80 MG Tablet PO (20:12)
[2019-09-22] MEDS: Enoxaparin 40 MG/0.4 ML Syringe SC (05:12)
[2019-09-22 05:53] LABS: Anion Gap 4 (5-15); BUN 32 mg/dL (7-18); Calcium,Total 9.1 mg/dL (8.5-10.1); Chloride 100 mmol/L (98-107); EST Glomerular Filtration Rate 59 mL/min (>60); Est Glom Filt Rate - Afr Amer 72 mL/min (>60); Estimated Creatinine Clearance 51.14 ml/min; Glucose 103 mg/dL (74-106); Magnesium 2.1 mg/dL (1.6-2.6); Phosphorus 3.3 mg/dL (2.5-4.9); Potassium 3.9 mmol/L (3.5-5.1); Sodium Level 138 mmol/L (136-145)
[2019-09-22 07:48] VITALS: BP 114/70; PULSE 73; RESP 18; TEMP 36.7; O2SAT 95
[2019-09-22] MEDS: Aspirin E.C. 81 MG Tablet PO (08:27)
[2019-09-22] MEDS: Carvedilol 12.5 MG Tablet PO ×2 (08:27→20:15)
[2019-09-22] MEDS: Losartan Potassium 100 MG Tablet PO (08:28)
[2019-09-22] MEDS: amLODIPine 10 MG Tablet PO (08:28)
[2019-09-22 10:46] VITALS: BMI 25.0
[2019-09-22 20:10] VITALS: BP 120/71; PULSE 64; RESP 16; TEMP 36.8; O2SAT 94; BMI 25.0
[2019-09-22] MEDS: Atorvastatin Calcium 80 MG Tablet PO (20:15)
[2019-09-22] MEDS: Mirtazapine 15 MG Tablet PO (20:16)
[2019-09-23] MEDS: Enoxaparin 40 MG/0.4 ML Syringe SC (06:36)
[2019-09-23] MEDS: Nystatin Powder 15gm Bottle 1 APPLIC TOPICAL ×2 (06:37→19:56)
[2019-09-23 07:23] VITALS: BP 114/73; PULSE 69; RESP 16; TEMP 37.1; O2SAT 94
[2019-09-23] MEDS: amLODIPine 10 MG Tablet PO (07:48)
[2019-09-23] MEDS: Carvedilol 12.5 MG Tablet PO ×2 (07:48→19:54)
[2019-09-23] MEDS: Aspirin E.C. 81 MG Tablet PO (07:48)
[2019-09-23] MEDS: Losartan Potassium 100 MG Tablet PO (07:48)
[2019-09-23 09:05] VITALS: BMI 25.0
--- NOTE | 2019-09-23 14:48 | CHAPLAIN ---
Type of Pastoral Visit ___ Initial Visit _x__ Follow-up Visit ___ On-call Visit ___ General Patient Visit ___ Spiritual Assessment ___ Family Conference ___ Bereavement ___ Rapid Response ___ Code Blue ___ Other (describe below) Pastoral Care Referral From _x__ Patient ___ Family ___ Nurse ___ Physician ___ Drug Coordinator ___ Instrument Sterilizer ___ Other (describe below) Sacrament/Intervention _x__ Active listening ___ Anointing ___ Anglican ___ Bereavement ___ Communion ___ Kriss exploration ___ ___ Life review _x__ Prayer ___ Reconciliation ___ Sacrament of Sick _x__ Supportive presence ___ Wedding ___ Other (describe below) Pastoral Comments patient is waiting and hopeful about further therapy and/or stay in hospital but is waiting on decisions to be made; pt states that she is making progress; pt welcomes spiritual care and prayer
[2019-09-23] MEDS: Atorvastatin Calcium 80 MG Tablet PO (19:55)
[2019-09-23] MEDS: Mirtazapine 15 MG Tablet PO (19:55)
[2019-09-23 20:00] VITALS: BP 137/83; PULSE 68; RESP 16; TEMP 36.7; O2SAT 97
[2019-09-23 20:08] VITALS: BMI 25.0
[2019-09-24] MEDS: Enoxaparin 40 MG/0.4 ML Syringe SC (05:55)
[2019-09-24] MEDS: Nystatin Powder 15gm Bottle 1 APPLIC TOPICAL ×2 (05:57→20:58)
[2019-09-24 08:05] VITALS: BP 134/78; PULSE 67; RESP 18; TEMP 36.9; O2SAT 94
[2019-09-24] MEDS: Carvedilol 12.5 MG Tablet PO ×2 (09:18→20:58)
[2019-09-24] MEDS: Aspirin E.C. 81 MG Tablet PO (09:18)
[2019-09-24] MEDS: amLODIPine 10 MG Tablet PO (09:18)
[2019-09-24] MEDS: Losartan Potassium 100 MG Tablet PO (09:18)
[2019-09-24 10:49] VITALS: BMI 25.0
[2019-09-24 19:38] VITALS: BP 127/72; PULSE 63; RESP 16; TEMP 37.6; O2SAT 96
[2019-09-24] MEDS: Atorvastatin Calcium 80 MG Tablet PO (20:58)
[2019-09-24] MEDS: Mirtazapine 15 MG Tablet PO (20:58)
[2019-09-25] MEDS: Enoxaparin 40 MG/0.4 ML Syringe SC (05:02)
[2019-09-25 07:29] VITALS: BP 127/77; PULSE 75; RESP 12; TEMP 36.9; O2SAT 98
[2019-09-25] MEDS: Carvedilol 12.5 MG Tablet PO ×2 (07:45→20:23)
[2019-09-25] MEDS: amLODIPine 10 MG Tablet PO (07:45)
[2019-09-25] MEDS: Aspirin E.C. 81 MG Tablet PO (07:45)
[2019-09-25] MEDS: Losartan Potassium 100 MG Tablet PO (07:45)
[2019-09-25 09:39] VITALS: BMI 25.0
--- NOTE | 2019-09-25 18:01 | PCM.PN.BLA ---
Progress Note Afebrile Vital signs stable Maintaining appropriate oxygen saturation on room air Nursing reports no problems Reviewed PT/OT/ST notes She is c/o waking up hourly at night. She is able to go back to sleep but, is feeling somewhat tired during the day. She denies nausea, constipation, chest pain, shortness of breath, calf pain. Alert, no apparent distress, making good eye contact Lungs-clear to auscultation throughout Heart-regular rate and rhythm with occasional ectopic Abdomen-soft, nontender, nondistended, normal bowel sounds No peripheral edema Persistent mild right facial droop, difficulty word finding but using circumlocution to get across her point. She is sitting in the bedside chair doing the exercises given to her by ST Rash has completely resolved. Impressions 1. Post stroke debility 2. Uzymzkmaxijt-esyg-husjlebcoc 3. Depression with insomnia-tolerating Remeron 15 mg p.o. nightly without any adverse side effects but still having difficulty with sleep 4. Dehydration Continue to encourage her to increase her fluid intake..... She is doing better. Increase the Remeron to 30 mg Q HS Inpatient E&M: [id number] Subs Hosp L2
[2019-09-25 19:47] VITALS: BP 117/66; PULSE 63; RESP 16; TEMP 36.7; O2SAT 98
[2019-09-25] MEDS: Atorvastatin Calcium 80 MG Tablet PO (20:23)
[2019-09-25] MEDS: Mirtazapine 30 MG Tablet PO (20:23)
[2019-09-26 01:06] VITALS: BMI 25.0
[2019-09-26] MEDS: Enoxaparin 40 MG/0.4 ML Syringe SC (05:22)
[2019-09-26 07:48] VITALS: BP 126/77; PULSE 68; RESP 16; TEMP 36.9; O2SAT 96
[2019-09-26] MEDS: Losartan Potassium 100 MG Tablet PO (09:00)
[2019-09-26] MEDS: Carvedilol 12.5 MG Tablet PO ×2 (09:00→20:19)
[2019-09-26] MEDS: Aspirin E.C. 81 MG Tablet PO (09:00)
[2019-09-26] MEDS: amLODIPine 10 MG Tablet PO (09:01)
[2019-09-26 13:38] VITALS: BMI 25.0
[2019-09-26 19:42] VITALS: BP 124/69; PULSE 60; RESP 16; TEMP 37.4; O2SAT 97
[2019-09-26] MEDS: Mirtazapine 30 MG Tablet PO (20:18)
[2019-09-26] MEDS: Nystatin Powder 15gm Bottle 1 APPLIC TOPICAL (20:19)
[2019-09-26] MEDS: Atorvastatin Calcium 80 MG Tablet PO (20:19)
[2019-09-27] MEDS: Enoxaparin 40 MG/0.4 ML Syringe SC (06:49)
[2019-09-27 07:32] VITALS: BP 135/83; PULSE 61; RESP 18; TEMP 36.6; O2SAT 97
[2019-09-27] MEDS: Losartan Potassium 100 MG Tablet PO (08:10)
[2019-09-27] MEDS: Aspirin E.C. 81 MG Tablet PO (08:10)
[2019-09-27] MEDS: amLODIPine 10 MG Tablet PO (08:10)
[2019-09-27] MEDS: Carvedilol 12.5 MG Tablet PO ×2 (08:10→20:04)
[2019-09-27 10:26] VITALS: BMI 25.0
[2019-09-27 19:25] VITALS: BP 130/73; PULSE 90; RESP 16; TEMP 36.7; O2SAT 96
[2019-09-27] MEDS: Atorvastatin Calcium 80 MG Tablet PO (20:04)
[2019-09-27] MEDS: Senna/Docusate Sodium 1 Tablet 2 TABLET PO (20:05)
[2019-09-27] MEDS: Mirtazapine 30 MG Tablet PO (20:05)
[2019-09-27] MEDS: Nystatin Powder 15gm Bottle 1 APPLIC TOPICAL (20:05)
[2019-09-28 04:20] VITALS: BMI 25.0
[2019-09-28] MEDS: Enoxaparin 40 MG/0.4 ML Syringe SC (04:37)
[2019-09-28 07:24] VITALS: BP 136/79; PULSE 75; RESP 20; TEMP 36.9; O2SAT 96
[2019-09-28] MEDS: Carvedilol 12.5 MG Tablet PO ×2 (08:08→20:41)
[2019-09-28] MEDS: Losartan Potassium 100 MG Tablet PO (08:08)
[2019-09-28] MEDS: Aspirin E.C. 81 MG Tablet PO (08:08)
[2019-09-28] MEDS: amLODIPine 10 MG Tablet PO (08:08)
[2019-09-28 10:34] VITALS: BMI 25.0
--- NOTE | 2019-09-28 13:45 | PCM.PN.BLA ---
Progress Note Afebrile VSS Maintaining appropriate oxygen saturation on RA Oral intake is improved Discussed with nursing - no problems that need addressed Reviewed the PT/OT/ST notes Medication list reviewed. She has no complaints. Sleeping well. Denies shortness of breath with exertion, chest pain, nausea, abdominal pain, dysuria. She is ambulating without an assistive device and doing well. 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 Alert, oriented x3 Lungs-clear to auscultation Heart-regular rate and rhythm, systolic murmur at the second right intercostal space with radiation to the left ventricular outflow tract, lower left sternal border and apex. Also with a soft systolic murmur in the left axillary area which is likely due to mitral regurgitation. No peripheral edema No calf tenderness No rashes or skin breakdown Persistent mild right facial droop....... most obvious when she smiles. Impressions 1. Postop debility-making good progress in therapy 2. Depression/insomnia-improving with increase in the Remeron to 30 mg nightly 3. Dehydration-improved. Mucous membranes are moist today 4. Dyslipidemia Recheck CBC and BMP in the a.m. Continue therapy Plan on discharge 10/03/2019...... insurance has extended her time for discharge to 10/03/2019. Inpatient E&M: 55674 Subs Hosp L2
--- NOTE | 2019-09-28 15:53 | CASEMGMT ---
Social Work IDT met with patient with Team meeting. Discussed patient's progress in therapy. Pt is progressing well and PT/OT decreased minutes -supervision for all tasks. Working on higher level tasks with 2-3 step directions and multi tasking. Pt struggles with 3 step directions and multi tasking. ST continues to work on apraxia, expressive aphasia, cognition. Family and friends will be at home with pt initially as she is unsafe at home alone. Explained insurance update 09/27 and will mostly likely set DC date. Pt agreeable. Spoke with Vicente Hinton with updated information as well. Vicente stated the house is not ready yet and inquired about appeal rights. Provided appeal rights, but explained insurance was clear with DC plans they will state the family should have been working on DC plans during stay and that is not grounds to win an appeal. Vicente understood. Advised her to get that organized as insurance can give same day DC date. Will make referral to [facility] for outpatient OT/ST. NO DME needs. Will provide transportation and counseling resources. Will continue to follow. KRISS PondW
[2019-09-28] MEDS: Mirtazapine 30 MG Tablet PO (20:42)
[2019-09-28] MEDS: Atorvastatin Calcium 80 MG Tablet PO (20:42)
[2019-09-28 21:09] VITALS: BP 121/73; PULSE 62; RESP 16; TEMP 37.1; O2SAT 94
[2019-09-28 22:53] VITALS: BMI 25.0
[2019-09-29] MEDS: Enoxaparin 40 MG/0.4 ML Syringe SC (05:52)
[2019-09-29 08:10] VITALS: BP 128/73; PULSE 63; RESP 14; TEMP 37.1; O2SAT 97
[2019-09-29] MEDS: amLODIPine 10 MG Tablet PO (08:11)
[2019-09-29] MEDS: Losartan Potassium 100 MG Tablet PO (08:11)
[2019-09-29] MEDS: Carvedilol 12.5 MG Tablet PO ×2 (08:11→20:01)
[2019-09-29] MEDS: Aspirin E.C. 81 MG Tablet PO (08:11)
[2019-09-29 09:11] VITALS: BMI 25.0
--- NOTE | 2019-09-29 10:51 | DCINST_ITS ---
- Discharge Diagnoses Current Active Problems: Current Active and Chronic Problems (Last Reviewed 09/14/19 @ 12:[address] Mariana Mcnulty, DO) Debility (Acute) due to L MCA ischemic CVA with small 5 mm petechial hemorrhagic transformation Ischemic cerebrovascular accident (CVA) (Acute) 09/07/19 L MCA NSTEMI (non-ST elevated myocardial infarction) (Acute) 09/07/19 - troponin peaked at 0.3. she has segmental wall motion abnormalities on ECHo with a 45-50% EF. Cath showed no significant CAD. Intracerebral hemorrhage (Acute) small petechial hemorrhage in the L frontal area Hypertension (Chronic) Depression (Acute) son 3 weeks prior to her stroke Aphasia (Acute) primarily expressive Venous insufficiency (Chronic) Venous stasis ulcer (Chronic) RLE - present since a dog bite a few months prior to admission to the rehab unit Biatrial enlargement (Chronic) Moderate to severe left atrial enlargement and moderate right atrial enlargement. Mild aortic stenosis (Chronic) The aortic valve is calcified. The valve gradient on left heart cath was unremarkable. Dysphagia (Acute) LVH (left ventricular hypertrophy) (Acute) has some impaired relaxation of the left ventricle Mitral regurgitation (Chronic) You will use the following diet at home:: Cardiac - low cholesterol, low salt Your food should be the consistency of: Regular Your liquids should be the consistency of: Regular/Thin - no straws Discharge Activity: May Not Drive, May Shower, - - Do the exercises given to you by the therapists twice a day. Weight Bearing Status: Full weight bearing Call your doctor if you observe: Fever of 101 or Higher, Shortness of breath, Dizziness, Fainting spells - Go the ED or call 911 immediately if sudden onset: 1. facial droop 2. slurred speech or inability to get words out 3. weakness or numbness on 1 side of the face, arm or leg. 4. vertigo or room spinning 5. loss of vision or trouble seeing in one eye 6. Confusion 7. Trouble walking or maintaining balance and trouble with coordination 8. Sudden severe headache with no known cause, Swelling in the ankles, Chest pain, Increased palpitations (irregular heartbeat), Calf discomfort Instructions: Effects of a Stroke on the Brain and Body, Risk Factors for Stroke, Mood Swings and Depression After a Stroke, Counseling for Depression, Depression: Tips to Help Yourself, Know the Signs and Symptoms of Depression Additional Instructions: 1. Your BP is very well controlled now. You are on 3 medications for BP and you have not had any adverse reactions to any of the medications. If you feel that you are having a side effect to any medication call your PCP to discuss prior to discontinuing the drug, unless the side effect is severe shortness of breath or feeling that your throat is closing up. 2. I think you are doing great and you have certainly worked hard. I think you will do even better at home. Please continue the Remeron (Mirtazapine) for at least 6 months and then IF you are doing well then discuss with your PCP or therapist tapering the medication. Give yourself time to heal from the loss of your son and the stroke and its deficits. 3. I think you would benefit greatly from counselling. Antidepressants and psychotherapy both work better when they are used together. You may think it would be too hard to talk to someone you don't know about personal things but, remember the therapist is a non-judgemental medical professional whose soul job is to help you recover from depression and move forward so you can enjoy life. 4. It has been a pleasure meeting you Yanet. You are quite a strong woman and a hard worker. If you have any questions after you leave the rehab unit or I can help in any way please call me at [phone] (work) or [phone] (cell). You could also call the rehab unit at [phone]. Take care of yourself.....you have been through a lot lately. I will send a copy of the discharge summary to your PCP. Pending Tests on Discharge: none Allergies/Adverse Reactions: Allergies tape Adverse Reaction (Uncoded 09/11/19 17:34) Rash Medications to take at Discharge Aspirin [Aspirin EC] 81 mg PO DAILY 09/10/19 Acetaminophen [Tylenol Tablet] 650 mg PO Q6H PRN PRN tablet 09/29/19 Amlodipine [Norvasc] 10 mg PO DAILY #30 tab 09/29/19 Atorvastatin Calcium [Lipitor] 80 mg PO QHS #30 tab 09/29/19 Carvedilol [Coreg] 12.5 mg PO BID #60 tab 08/11/20 Losartan Potassium 100 mg PO DAILY #30 tab 09/29/19 Mirtazapine [Remeron] 30 mg PO QHS #30 tab 09/29/19 Nystatin Powder [Mycostatin Powder] 1 applic TOPICAL BID@0600,2200 #1 bottle 09/29/19 The following prescriptions were given: Carvedilol [Coreg] 12.5 mg PO BID #60 tab Transmission Status: Pending to [facility] Atorvastatin Calcium [Lipitor] 80 mg PO QHS #30 tab Transmission Status: Pending to [facility] Losartan Potassium 100 mg PO DAILY #30 tab Transmission Status: Pending to [facility] Nystatin Powder [Mycostatin Powder] 1 applic TOPICAL BID@0600,2200 #1 bottle Prescription Printed Amlodipine [Norvasc] 10 mg PO DAILY #30 tab Transmission Status: Pending to [facility] Mirtazapine [Remeron] 30 mg PO QHS #30 tab Transmission Status: Pending to [facility] Test Results: Test results from this visit will be discussed in further detail at your follow- up appointment, if applicable. Please Follow Up With: Kamilah Jimenez CNP When: Saturday Please Follow Up With: Dr. Cabrales-Neurology When: Saturday Proposed Discharge Date: 09/30/19
--- NOTE | 2019-09-29 11:34 | PCM.DC.SUM ---
Discharge Date and Diagnosis - Problem List Patient Problems: Active and Suspected Problems (Last Reviewed 09/14/19 @ 12:[address] Mariana Mcnulty DO) Debility (Acute) due to L MCA ischemic CVA with small 5 mm petechial hemorrhagic transformation Ischemic cerebrovascular accident (CVA) (Acute) 09/07/19 L MCA NSTEMI (non-ST elevated myocardial infarction) (Acute) 09/07/19 - troponin peaked at 0.3. she has segmental wall motion abnormalities on ECHo with a 45-50% EF. Cath showed no significant CAD. Intracerebral hemorrhage (Acute) small petechial hemorrhage in the L frontal area Depression (Acute) son 3 weeks prior to her stroke Aphasia (Acute) primarily expressive Dysphagia (Acute) LVH (left ventricular hypertrophy) (Acute) has some impaired relaxation of the left ventricle Date of Admission: 09/10/19 Date of Discharge: 09/30/19 - Primary Discharge Diagnosis Acute Problems: Active Problems (Last Reviewed 09/14/19 @ 12:[address] Mariana Mcnulty DO) Debility (Acute) due to L MCA ischemic CVA with small 5 mm petechial hemorrhagic transformation Ischemic cerebrovascular accident (CVA) (Acute) 09/07/19 L MCA NSTEMI (non-ST elevated myocardial infarction) (Acute) 09/07/19 - troponin peaked at 0.3. she has segmental wall motion abnormalities on ECHO with a 45-50% EF. Cath showed no significant CAD. 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 I suspect she may be having PAF. - Secondary Discharge Diagnosis Chronic Problems: Chronic Problems (Last Reviewed 09/14/19 @ 12:[address] Mariana Mcnulty DO) Hypertension (Chronic) - previously untreated Venous insufficiency (Chronic) Venous stasis ulcer (Chronic) RLE - present since a dog bite a few months prior to admission to the rehab unit Biatrial enlargement (Chronic) Moderate to severe left atrial enlargement and moderate right atrial enlargement. Mild aortic stenosis (Chronic) The aortic valve is calcified. The valve gradient on left heart cath was unremarkable. Mitral regurgitation (Chronic) Dyslipidemia Hospital Course and Treatment Imaging Results: Laboratory Last Values WBC 6.4 K/mm3 (4.4-11.0) 10/01/19 05:38 RBC 4.53 M/mm3 (4.2-5.4) 10/01/19 05:38 Hgb 13.2 g/dL (12.0-15.0) 10/01/19 05:38 Hct 41.2 % (37-47) 10/01/19 05:38 MCV 90.9 fL (81-99) 10/01/19 05:38 MCH 29.1 pg (27.0-32.0) 10/01/19 05:38 MCHC 32.0 g/dL (32-36) 10/01/19 05:38 RDW Std Deviation 41.1 fl (35.1-43.9) 10/01/19 05:38 RDW Coeff of [place] 12.5 % (11.6-14.6) 10/01/19 05:38 Plt Count 260 K/mm3 (150-450) 10/01/19 05:38 MPV 9.3 fl (6.2-12.0) 10/01/19 05:38 Immature Gran % (Auto) 0.200 % (0.0-0.9) 09/11/19 05:35 Neut % (Auto) 73.3 % (47-70) H 09/11/19 05:35 Lymph % (Auto) 14.3 % (19-41) L 09/11/19 05:35 [place] % (Auto) 9.3 % (0-10) 09/11/19 05:35 Eos % (Auto) 2.1 % (0-5) 09/11/19 05:35 Baso % (Auto) 0.8 % (0-1) 09/11/19 05:35 Absolute Neuts (auto) 6.3 X10^3/uL (2.0-7.7) 09/11/19 05:35 Absolute Lymphs (auto) 1.22 X10^3/uL (0.83-4.51) 09/11/19 05:35 Nucleated RBC % 0 % (0-5) 09/11/19 05:35 Sodium 140 mmol/L (136-145) 10/01/19 05:38 Potassium 4.1 mmol/L (3.5-5.1) 10/01/19 05:38 Chloride 103 mmol/L (98-107) 10/01/19 05:38 Carbon Dioxide 31.0 mmol/L (21.0-32.0) 10/01/19 05:38 Anion Gap 6 (5-15) 10/01/19 05:38 BUN 20 mg/dL (7-18) H 10/01/19 05:38 Creatinine 0.83 mg/dL (0.55-1.02) 10/01/19 05:38 Estim Creat Clear Calc 61.62 ml/min 10/01/19 05:38 Est GFR (MDRD) Af Amer 88 mL/min (>60) 10/01/19 05:38 Est GFR (MDRD) Non-Af 73 mL/min (>60) 10/01/19 05:38 BUN/Creatinine Ratio 24.0 RATIO (10-20) H 10/01/19 05:38 Glucose 91 mg/dL (74-106) 10/01/19 05:38 Calcium 9.2 mg/dL (8.5-10.1) 10/01/19 05:38 Phosphorus 3.3 mg/dL (2.5-4.9) 09/22/19 05:30 Magnesium 2.3 mg/dL (1.6-2.6) 10/01/19 05:38 Total Bilirubin 0.80 mg/dL (0.20-1.00) 09/11/19 05:35 AST 32 U/L (15-37) 09/11/19 05:35 ALT 72 U/L (13-56) H 09/11/19 05:35 Alkaline Phosphatase 79 U/L (45-117) 09/11/19 05:35 Total Protein 7.3 g/dL (6.4-8.2) 09/11/19 05:35 Albumin 3.4 g/dL (3.2-5.0) 09/11/19 05:35 Globulin 3.9 g/dL (2.2-4.2) 09/11/19 05:35 Albumin/Globulin Ratio 0.9 RATIO (0.9-2.4) 09/11/19 05:35 COVID-19 (RASHMI) Negative (Not Detect) 09/11/19 11:42 none Operations: None Procedures: None Summary of Care Provided: Yanet presented to a local hospital on 09/07/19 after her neighbors found her wandering in her yard confused and dysarthric. She was diagnosed with an acute CVA and had an elevated troponin. She was transferred to [facility] for further management. An echocardiogram done at the outside hospital showed a 45 to 50% ejection fraction with regional wall motion abnormalities. Cardiology and neurology were consulted upon arrival at [facility]. CT scan of the brain on arrival at [facility] on 09/07/2019 showed a left hyperdense MCA sign. There were minimal deep and periventricular white matter hypodensities consistent with small vessel ischemic disease. CTA showed the common carotids, internal carotids and left MCA to have no significant stenosis. The vertebrobasilar system was patent as well. The pulmonary artery appeared dilated. Lab at admission to [facility] was significant for leukocytosis and urinary tract infection. She was treated with clindamycin and Rocephin while at [facility]. Troponin was mildly elevated and peaked at 0.3. The EKG showed normal sinus rhythm with left ventricular hypertrophy and repolarization abnormalities in the lateral leads. There was no ST elevation. She had a left heart catheterization while at [facility] and this revealed no significant coronary artery disease. Yanet was on no medications at the time of the stroke. She had been diagnosed with HTN in the past by her PCP but, she decided not to take medication. Her son 3 weeks prior to the stroke and she had been depressed. He was living with her and he was her only child. She is . 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 She was admitted to the inpt rehab unit at [facility] on 09/10/19 for > 3 hours of therapy daily to restore at or near her prior level of function and independence. Rose was started on Remeron for depression and has had no adverse reactions. Her mood is significantly improved and she is now sleeping well at night and eating and drinking better. The crying spells are infrequent now and she can say that her son is no longer in pain and she is happy about that. Antihypertensives currently include amlodipine 10 mg daily, carvedilol 12.5 mg twice daily and losartan 100 mg daily. Her blood pressure has been well controlled. Creatinine did go up to 1.11 with a BUN of 44 during her admission to the rehab unit however this was secondary to dehydration and when her appetite and intake improved the BUN and creatinine dropped to 20 and 0.83 respectively and have been stable. She was very motivated to do therapy and has done quite well. Prior to discharge on 09/30/2019 she had ambulated 300 to 825 feet on various surfaces independently. She was able to open doors and complete conversations during her walk in various community settings. She was able to do 20 steps at standby assist with one rail in a reciprocal pattern. At the time of discharge she was using no assistive devices. She was able to do her ADLs including grooming, bathing, upper and lower body dressing, toileting and showering with supervision only. She continues to have cognitive dysfunction but is progressing. On 10/02/2019 she was able to follow two-step commands with 90% accuracy and approximately 20% with three-step commands. 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 Her brother will be managing her finances post discharge and friends will assist with managing medications. Vicente's father will be staying with Yanet during the day to supervise. She is going to have outpatient therapy at [facility] in [place]. FMLA papers were completed for her and she was given 12 weeks and will have re-evaluation by her PCP and neurologist to determine if at that time she would be able to return to her job. She was discharged home on 10/03/19 and her RX's were delivered to her from the retail pharmacy prior to discharge. She will follow-up with Kamilah Jimenez CNP on Saturday10/07/19 for primary care. She will follow up with Dr. José Antonio Cabrales from Neurology on Saturday10/06/19. Alert, oriented x3, cooperative, pleasant and in no apparent distress Pupils are equal round and reactive to light and accommodation, extraocular muscles are intact. Mucous membranes are moist and there are no mucosal lesions. There are bilateral carotid bruits versus radiation of the aortic stenosis murmur. Lungs-clear to auscultation with good air exchange Heart-regular rate and rhythm, normal S1, normal S2, systolic murmur at the second right intercostal space with radiation to the left ventricular outflow tract, lower left sternal border and apex. She also has a soft systolic murmur in the left axilla due to mitral regurgitation. Abdomen-soft, nontender, nondistended, no guarding with palpation, normal bowel sounds present, no abdominal bruits No peripheral edema, no cyanosis, no calf tenderness, no clubbing No visual field cuts, no neglect, no ataxia, she does have apraxia with speech and motor function of the UE/hands. She has a mild R facial droop No rashes and no skin breakdown. This note was generated with mobile mum dictation software. It may contain incorrect words, spelling, and punctuation that were not noted in checking the note before signing. This note was generated with mobile mum dictation software. It may contain incorrect words, spelling, and punctuation that were not noted in checking the note before signing. Patient Problems: Active and Suspected Problems (Last Reviewed 09/14/19 @ 12:[address] Mariana Mcnulty DO) Debility (Acute) due to L MCA ischemic CVA with small 5 mm petechial hemorrhagic transformation Ischemic cerebrovascular accident (CVA) (Acute) 09/07/19 L MCA NSTEMI (non-ST elevated myocardial infarction) (Acute) 09/07/19 - troponin peaked at 0.3. she has segmental wall motion abnormalities on ECHo with a 45-50% EF. Cath showed no significant CAD. Intracerebral hemorrhage (Acute) small petechial hemorrhage in the L frontal area Depression (Acute) son 3 weeks prior to her stroke Aphasia (Acute) primarily expressive Dysphagia (Acute) LVH (left ventricular hypertrophy) (Acute) has some impaired relaxation of the left ventricle - Physical Exam Vitals/I&O's: Vital Signs Temp Pulse Resp BP Pulse Ox 98.7 F 63 14 128/73 H 97 09/29/19 08:10 09/29/19 08:10 09/29/19 08:10 09/29/19 08:09/29/19 08:10 Oxygen Delivery Method Room Air Weight: 157 lb 10.088 oz Body Mass Index (BMI) 25.0 Intake and Output for Last 24 Hours 09/27/19 09/28/19 09/29/19 23:59 23:59 23:59 Intake Total 1200 / 1200 1670 / 1670 Output Total 800 / 800 Balance 400 / 400 1670 / 1670 Current Medications Acetaminophen (Tylenol) 650 mg PO Q6H PRN PRN PRN Reason: Pain Score 1-10 Amlodipine Besylate (Norvasc) 10 mg PO DAILY [facility] Last Admin: 09/29/19 08:11 Dose: 10 mg Documented by: Aspirin (Ecotrin) 81 mg PO DAILYCM [facility] Last Admin: 09/29/19 08:11 Dose: 81 mg Documented by: Atorvastatin Calcium (Lipitor) 80 mg PO QHS [facility] Last Admin: 09/28/19 20:42 Dose: 80 mg Documented by: Bisacodyl (Dulcolax) 10 mg RECTAL .PRN X 1 PRN PRN Reason: Constipation Carvedilol (Coreg) 12.5 mg PO BID [facility] Last Admin: 09/29/19 08:11 Dose: 12.5 mg Documented by: Diphenhydramine HCl (Benadryl) 25 mg PO Q6H PRN PRN Reason: ITCHING Last Admin: 09/12/19 21:09 Dose: 25 mg Documented by: Enoxaparin Sodium (Lovenox) 40 mg SC DAILY@0600 [facility] Last Admin: 09/29/19 05:52 Dose: 40 mg Documented by: Losartan Potassium (Cozaar) 100 mg PO DAILY [facility] Last Admin: 09/29/19 08:11 Dose: 100 mg Documented by: Magnesium Hydroxide (Milk Of Magnesia) 30 ml PO .PRN X 1 PRN PRN Reason: Constipation Mirtazapine (Remeron) 30 mg PO QHS [facility] Last Admin: 09/28/19 20:42 Dose: 30 mg Documented by: Multi-Ingredient Cream (Eucerin) 1 applic TOPICAL BID PRN PRN; Protocol PRN Reason: DRY SKIN Nutritional Formula (Lactose Free) (Ensure Enlive) 120 ml PO 4X/DAY [facility] Last Admin: 09/29/19 08:11 Dose: Not Given Documented by: Nystatin (Mycostatin Powder) 1 applic TOPICAL BID@0600,2200 [facility]; Protocol Last Admin: 09/29/19 05:56 Dose: Not Given Documented by: Senna/Docusate Sodium (Senokot-S, Paty-Colace) 2 tablet PO BID [facility] Last Admin: 09/29/19 08:11 Dose: Not Given Documented by: Discharge Activity: May Not Drive, May Shower, - - Do the exercises given to you by the therapists twice a day. Weight Bearing Status: Full weight bearing Call your doctor if you observe: Fever of 101 or Higher, Shortness of breath, Dizziness, Fainting spells - Go the ED or call 911 immediately if sudden onset: 1. facial droop 2. slurred speech or inability to get words out 3. weakness or numbness on 1 side of the face, arm or leg. 4. vertigo or room spinning 5. loss of vision or trouble seeing in one eye 6. Confusion 7. Trouble walking or maintaining balance and trouble with coordination 8. Sudden severe headache with no known cause, Swelling in the ankles, Chest pain, Increased palpitations (irregular heartbeat), Calf discomfort Home Medications: Medications to take at Discharge Aspirin [Aspirin EC] 81 mg PO DAILY 09/10/19 Acetaminophen [Tylenol Tablet] 650 mg PO Q6H PRN PRN tab 09/29/19 Amlodipine [Norvasc] 10 mg PO DAILY #30 tab 09/29/19 Atorvastatin Calcium [Lipitor] 80 mg PO QHS #30 tab 09/29/19 Carvedilol [Coreg] 12.5 mg PO BID #60 tab 09/29/19 Losartan Potassium 100 mg PO DAILY #30 tab 09/29/19 Mirtazapine [Remeron] 30 mg PO QHS #30 tab 09/29/19 Nystatin Powder [Mycostatin Powder] 1 applic TOPICAL BID@0600,0 #1 bottle 09/29/19 Following Prescriptions Were Given to Patient: Carvedilol [Coreg] 12.5 mg PO BID #60 tab Transmission Status: Received by [facility] Atorvastatin Calcium [Lipitor] 80 mg PO QHS #30 tab Transmission Status: Received by [facility] Losartan Potassium 100 mg PO DAILY #30 tab Transmission Status: Received by [facility] Nystatin Powder [Mycostatin Powder] 1 applic TOPICAL BID@0600,2200 #1 bottle Prescription Printed Amlodipine [Norvasc] 10 mg PO DAILY #30 tab Transmission Status: Received by [facility] Mirtazapine [Remeron] 30 mg PO QHS #30 tab Transmission Status: Received by [facility] Other Amb Orders: 30-Day Event Recorder [CVS] Location: None Selected Please Follow Up With: Kamilah Jimenez CNP When: Saturday Please Follow Up With: Dr. Cabrales-Neurology When: Saturday Patient Instructions: Effects of a Stroke on the Brain and Body, Mood Swings and Depression After a Stroke, Counseling for Depression, Depression: Tips to Help Yourself, Know the Signs and Symptoms of Depression, Risk Factors for Stroke Disposition: Home - with OP therapy at [facility] Minutes spent on discharge:: 45 Patient Condition:: Good Medical Necessity - Tobacco Use Smoking Status: Never smoker Tobacco Use: Non-smoker Meaningful Use Info Meaningful Use Diagnoses (Choose all that apply): Ischemic CVA - CVA Therapy Assessed for PT,OT and/or ST?: Yes - Ischemic Stroke Antithrombotic order at d/c?: Yes Dx of Atrial fib/flutter?: No Anticoagulant at discharge?: No Reason anticoagulant not ordered: Treatment not Indicated - She will be getting a 30 day event monitor at [facility] at discharge?: Yes Primary Dx Acute Ischemic CVA?: Yes IV tPA ordered during stay?: No Reason IV t-PA not ordered: Treatment not Indicated - We are a rehab facility and did not see her for acute stroke management Inpatient E&M: 20140 Disch Hosp
--- NOTE | 2019-09-29 14:53 | CASEMGMT ---
Social Work Spoke with pt about DC plans. Insurance approved pt to DC 10/02. Pt agreeable as Vicente is still needing to finalize renovations to the house. Pt is agreeable to outpatient OT/ST at [facility]. Provided her LifeAlert, counseling and transportation resources. Pt denied MOW. Pt states she has several family members and friends to alternate times to be with her 24/7. Spoke with Vicente at length to discuss DC plans. Explained pt's functional status, cognitive status, swallowing, exercises. Explained insurance approved with DC 10/02. Vicente stated that would be plenty of time to get the house ready. SW offered to email all information and resources. Vicente agreed. Explained pt has coordinated for people to stay with her 24/7. Vicente is skeptical about the follow through of those people. Reviewed her outpatient therapy, transportation, she does not need a device to ambulate, just assistance with meals, finances and medications. Emailed LifeAlert, transportation resources and recap of conversation to Vicente. Vicente to pickup driver pt for DC 10/02 after 1 pm. No other issues noted. Plan: DC home with support 10/02 with [facility] OT/ST. No DME needs. Paty Bacon, VACUUM DRIER OPERATOR HIGH SPEED PRINTER OPERATOR
[2019-09-29] MEDS: Atorvastatin Calcium 80 MG Tablet PO (20:01)
[2019-09-29] MEDS: Mirtazapine 30 MG Tablet PO (20:01)
[2019-09-29 20:04] VITALS: BP 124/77; PULSE 64; RESP 17; TEMP 36.9; O2SAT 98
[2019-09-29 20:12] VITALS: BMI 25.0
[2019-09-30] MEDS: Enoxaparin 40 MG/0.4 ML Syringe SC (06:15)
[2019-09-30 08:35] VITALS: BP 149/71; PULSE 66; RESP 17; TEMP 36.6; O2SAT 95
[2019-09-30] MEDS: Carvedilol 12.5 MG Tablet PO ×2 (09:07→20:35)
[2019-09-30] MEDS: Losartan Potassium 100 MG Tablet PO (09:07)
[2019-09-30] MEDS: amLODIPine 10 MG Tablet PO (09:08)
[2019-09-30] MEDS: Aspirin E.C. 81 MG Tablet PO (09:08)
--- NOTE | 2019-09-30 10:20 | PCM.PN.BLA ---
Progress Note Afebrile VSS-blood pressure is well controlled. Maintaining appropriate oxygen saturation on RA Oral intake is good Discussed with nursing - no problems that need addressed Reviewed the PT/OT/ST notes Medication list reviewed. [employer] extended the DC date until 10/02. Her friend Vicente is researching [facility] now and told the pt they do not have the best reputation. Grab bars and the handrail will be in by Saturday. I told her that I did her FMLA paperwork and she thinks that she may not be able to go back to work due to the speech and apraxias. Her job is very stressful and she worked long hours, frequently 12 hours a day. She is sleeping well and her mood is better. She has a positive attitude about the future and she is no longer tearful when talking with me. She is making good eye contact. Affect is not flat. Alert, oriented x3, no apparent distress, sitting in the recliner at the bedside doing anagrams Mucous membranes are moist Heart-regular rate and rhythm, no gallop Lungs-clear to auscultation Abdomen-good bowel sounds, soft, nontender No calf tenderness, no peripheral edema No rashes and no skin breakdown Impressions 1. Debility secondary to left MCA stroke 2. Recent NSTEMI 3. Hypertension-controlled 4. Allergic dermatitis secondary either to Rocephin or clindamycin administered at the previous hospital. Resolved. 5. Depression-improving 6. Dysphagia 7. Speech apraxia 8. Metabolic alkalosis secondary to intravascular volume depletion. 9. Biatrial enlargement-moderate to severe on the left and mild aortic stenosis. Cannot rule out paroxysmal atrial fibrillation as etiology of stroke. Recheck CBC, BMP and magnesium in the a.m. The [employer] has extended her discharge date until 10/03/2019. We will continue therapy. An order has been written for a 30-day event monitor at discharge. We will also schedule an appointment for her to follow-up with the [facility]. STROKE Vital Signs/Narrative: Vital Signs Temp Pulse Resp BP Pulse Ox 09/30/19 08:35 97.8 F 66 17 149/71 H 95 Inpatient E&M: 31299 Subs Hosp L2
[2019-09-30 14:37] VITALS: BMI 25.0
[2019-09-30 20:04] VITALS: BP 131/72; PULSE 62; RESP 18; TEMP 36.8; O2SAT 98
[2019-09-30 20:30] VITALS: PULSE 62; RESP 18; O2SAT 98; BMI 25.0
[2019-09-30] MEDS: Mirtazapine 30 MG Tablet PO (20:35)
[2019-09-30] MEDS: Atorvastatin Calcium 80 MG Tablet PO (20:35)
[2019-10-01] MEDS: Enoxaparin 40 MG/0.4 ML Syringe SC (05:10)
[2019-10-01 05:47] LABS: Hematocrit 41.2 % (37-47); Hemoglobin 13.2 g/dL (12.0-15.0); Mean Corpuscular Hgb 29.1 pg (27.0-32.0); Mean Corpuscular Volume 90.9 fL (81-99); Mean Platelet Vol. 9.3 fl (6.2-12.0); Platelet Count 260 K/mm3 (150-450); RBC Distribution Width CV 12.5 % (11.6-14.6); RBC Distribution Width SD 41.1 fl (35.1-43.9); Red Blood Count 4.53 M/mm3 (4.2-5.4); White Blood Count 6.4 K/mm3 (4.4-11.0)
[2019-10-01 06:27] LABS: Anion Gap 6 (5-15); BUN 20 mg/dL (7-18); Calcium,Total 9.2 mg/dL (8.5-10.1); Chloride 103 mmol/L (98-107); Creatinine, Serum 0.83 mg/dL (0.55-1.02); EST Glomerular Filtration Rate 73 mL/min (>60); Est Glom Filt Rate - Afr Amer 88 mL/min (>60); Estimated Creatinine Clearance 61.62 ml/min; Glucose 91 mg/dL (74-106); Magnesium 2.3 mg/dL (1.6-2.6); Potassium 4.1 mmol/L (3.5-5.1); Sodium Level 140 mmol/L (136-145)
[2019-10-01] MEDS: amLODIPine 10 MG Tablet PO (07:53)
[2019-10-01] MEDS: Losartan Potassium 100 MG Tablet PO (07:53)
[2019-10-01] MEDS: Carvedilol 12.5 MG Tablet PO ×2 (07:53→20:08)
[2019-10-01] MEDS: Aspirin E.C. 81 MG Tablet PO (07:53)
[2019-10-01 07:55] VITALS: BMI 25.0
[2019-10-01 08:24] VITALS: BP 126/87; PULSE 73; RESP 16; TEMP 36.6; O2SAT 97
--- NOTE | 2019-10-01 11:21 | NURSING ---
see therapy notes for Functional Assessment
[2019-10-01 13:28] VITALS: BMI 25.0
[2019-10-01 19:37] VITALS: BP 133/88; PULSE 59; RESP 16; TEMP 36.7; O2SAT 98
[2019-10-01] MEDS: Atorvastatin Calcium 80 MG Tablet PO (20:09)
[2019-10-01] MEDS: Mirtazapine 30 MG Tablet PO (20:09)
[2019-10-01 20:31] VITALS: BMI 25.0
[2019-10-02] MEDS: Enoxaparin 40 MG/0.4 ML Syringe SC (06:10)
[2019-10-02 07:37] VITALS: BP 133/77; PULSE 60; RESP 18; TEMP 36.6; O2SAT 96
[2019-10-02] MEDS: Losartan Potassium 100 MG Tablet PO (07:39)
[2019-10-02] MEDS: Aspirin E.C. 81 MG Tablet PO (07:39)
[2019-10-02] MEDS: amLODIPine 10 MG Tablet PO (07:40)
[2019-10-02 09:59] VITALS: BMI 25.0
[2019-10-02] MEDS: Carvedilol 12.5 MG Tablet PO ×2 (10:32→21:24)
--- NOTE | 2019-10-02 11:57 | PCM.PN.BLA ---
Progress Note Afebrile Vital signs stable-blood pressure is generally well controlled with rare occasion of systolic greater than 135. She denies lightheadedness. The goal for blood pressure management is less than 130/80. I do not want to adjust antihypertensives at this time.....as it likely will change when she goes home tomorrow. She is maintaining good oxygen saturation on room air. No complaints. 10 point ROS is negative. Alert, oriented x3, no apparent distress, she is calm Mucous membranes are moist Lungs-clear to auscultation Heart-regular rate and rhythm, no change in the left ear and MR murmurs Abdomen-no bruits, soft, nontender, normal bowel sounds heard, no guarding with palpation No peripheral edema Persistent mild right facial droop which is most noticeable when she smiles. When she is talking it is barely detectable. Impressions 1. Postop debility 2. Depression 3. Hypertension 4. Biatrial enlargement........ suspect she may be having paroxysmal atrial fibrillation and she has an order for a 30-day event monitor at discharge and will follow up with Dr. Alvarez on November 11. 5. Dyslipidemia-we will need a liver panel and lipid panel in 2 to 4 weeks. 6. Mild cardiomyopathy with segmental wall motion abnormalities and a 45 to 50% EF 7. Recent and STEMI with no significant coronary artery disease on cardiac catheterization 8. Mild aortic stenosis She is doing very well. All her questions were answered today. Pharmacy will send up her prescriptions so she has them in hand at discharge Plan discharge tomorrow. Inpatient E&M: 25999 Subs Hosp L2
[2019-10-02 19:29] VITALS: BP 128/76; PULSE 60; RESP 16; TEMP 36.8; O2SAT 97
[2019-10-02] MEDS: Mirtazapine 30 MG Tablet PO (21:23)
[2019-10-02] MEDS: Atorvastatin Calcium 80 MG Tablet PO (21:24)
[2019-10-03 05:00] VITALS: BMI 25.0
[2019-10-03] MEDS: Enoxaparin 40 MG/0.4 ML Syringe SC (06:47)
[2019-10-03 07:30] VITALS: BP 142/85; PULSE 64; RESP 14; TEMP 36.8; O2SAT 98
[2019-10-03] MEDS: Losartan Potassium 100 MG Tablet PO (10:18)
[2019-10-03] MEDS: Aspirin E.C. 81 MG Tablet PO (10:18)
[2019-10-03] MEDS: Carvedilol 12.5 MG Tablet PO (10:18)
[2019-10-03] MEDS: amLODIPine 10 MG Tablet PO (10:18)
[2019-10-03 14:00] VITALS: BP 142/85; PULSE 64; RESP 14; TEMP 36.8; O2SAT 98; BMI 25.0
--- NOTE | 2019-10-03 14:00 | NURSING ---
Dc instruct given to patient and her POA and verbalized understanding.
== END 2019-10-03 14:00 | disposition home or self-care (01) | DRG 56 ==
PROVIDERS: Admitting Provider Internal Medicine; Visit Provider Internal Medicine
DX: I69.390 Apraxia following cerebral infarction (principal); I21.4 Non-ST elevation (NSTEMI) myocardial infarction; I69.320 Aphasia following cerebral infarction; I69.392 Facial weakness following cerebral infarction; I10 Essential (primary) hypertension; F32.9 Major depressive disorder, single episode, unspecified; R13.10 Dysphagia, unspecified; I69.322 Dysarthria following cerebral infarction; E78.5 Hyperlipidemia, unspecified; E86.0 Dehydration; I08.0 Rheumatic disorders of both mitral and aortic valves; I69.319 Unspecified symptoms and signs involving cognitive functions following cerebral infarction
CPT/HCPCS: 36415; 80048; 80053; 83735; 84100; 85025; 85027; 87635; 92507; 92508; 92523; 92526; 92610; 94799; 97110; 97112; 97116; 97129; 97130; 97162; 97166; 97530; 97535; 97802; 97803; 99251; G0463; U0003

== ENCOUNTER → 2020-04-01 09:07 | Outpatient (CLI) | payer BC, SELFPAY ==
--- NOTE | 2020-04-01 09:11 | CDU_ITS ---
Reason For Study: LEFT CAROTID BRUIT Rt. Velocities/BP Lt. Velocities/BP Prox CCA 87/22 cm/sec. Prox CCA 101/27 cm/sec. Mid CCA 95/26 cm/sec. Mid CCA 99/20 cm/sec. Dist CCA 60/18 cm/sec. Dist CCA 73/19 cm/sec. Prox ICA 61/20 cm/sec. Prox ICA 54/18 cm/sec. Mid ICA 101/39 cm/sec. Mid ICA 106/35 cm/sec. Dist ICA 51/18 cm/sec. Dist ICA 68/24 cm/sec. Rt. ICA/CCA = 1.2. Lt. ICA/CCA = 1.1. Prox ECA 107/23 cm/sec. Prox ECA 103/18 cm/sec. Rt. Vert. 21/7 cm/sec. Lt. Vert. 60/21 cm/sec. Right Extracranial There is homogeneous, smooth atherosclerotic plaque noted in the right common carotid artery. There is homogeneous, smooth atherosclerotic plaque noted in the right internal carotid artery. There is heterogeneous, irregular atherosclerotic plaque noted in the right internal carotid artery. There is no significant atherosclerotic plaque noted in the right external carotid artery. Antegrade flow is noted in the right vertebral artery. Left Extracranial There is homogeneous, smooth atherosclerotic plaque noted in the left common carotid artery. There is intimal thickening but no significant atherosclerotic plaque noted in the left internal carotid artery. There is homogeneous, smooth atherosclerotic plaque noted in the left external carotid artery. Antegrade flow is noted in the left vertebral artery. Procedure Carotid Duplex [id number]. Exam performed in department. Interpretation Summary Smooth plaque at the proximal right internal carotid artery with less than 50% stenosis Less than 50% stenosis right external carotid artery Intimal thickening at the proximal left internal carotid artery with less than 50% stenosis Less than 50% stenosis left external carotid artery Patent and antegrade vertebrals bilaterally Ordering Physician: José Antonio Cabrales Referring Physician: RIGO CARDENAS Performed By: Zhanna Hanson, ROJAS, RVT
== END ==
PROVIDERS: PCP Nurse Practitioner Family; Referring Provider Psychiatry & Neurology Neurology; Visit Provider Psychiatry & Neurology Neurology
DX: R09.89 Other specified symptoms and signs involving the circulatory and respiratory systems (principal)
CPT/HCPCS: 93880